=== PATIENT | male | born 1975 | race Caucasian/White ===

== ENCOUNTER 2019-07-01 00:52 | Observation (INO) ==
[2019-07-01] MEDS ORDERED: Albuterol 2.5 MG/3 ML NEBULIZER ONE (01:03)
[2019-07-01] MEDS ORDERED: 0.9 % Sodium Chloride 1,000 ML IVC ONE (01:04)
[2019-07-01] MEDS ORDERED: Famotidine 20 MG/2 ML VIAL IVP ONE (01:04)
[2019-07-01] MEDS ORDERED: Famotidine 20 MG/2 ML VIAL ONE (01:05)
[2019-07-01] MEDS ORDERED: Dexamethasone 10 MG/ML VIAL ONE (01:05)
[2019-07-01] MEDS ORDERED: Dexamethasone 4 MG/ML VIAL IVP ONE ×2 (01:05→05:09)
[2019-07-01] MEDS ORDERED: 0.9 % Sodium Chloride 1,000 ML ONE (01:08)
[2019-07-01] MEDS ORDERED: EPINEPHrine 1 MG/ML VIAL ONE (01:16)
[2019-07-01] MEDS ORDERED: EPINEPHrine 1 MG/ML VIAL IM ONE (01:20)
--- NOTE | 2019-07-01 01:24 | Emergency Department Note ---
Disposition Clinical Impression: Urticaria Angioedema Qualifiers: Encounter type: initial encounter Qualified Code(s): T78.3XXA - Angioneurotic edema, initial encounter Allergic reaction Qualifiers: Encounter type: initial encounter Qualified Code(s): T78.40XA - Allergy, unspecified, initial encounter Anaphylaxis Qualifiers: Encounter type: initial encounter Qualified Code(s): T78.2XXA - Anaphylactic shock, unspecified, initial encounter Disposition: Admitted As Inpatient Condition: Fair Time of Disposition: 05:45 Allergic Reaction HPI - General Chief complaint: ED Allergic Reaction Stated complaint: allergic reaction Time Seen by Provider: 07/01/19 01:04 Source: patient Limitations: no limitations Nursing Notes Reviewed: Yes Vital Signs Reviewed: Yes - History of Present Illness HPI Narrative: 44-year-old male presents for evaluation of allergic reaction. He states that he noticed some hives on his arms earlier in the day. He recently restarted Suboxone. He did receive Benadryl earlier for itching and urticaria. He states he went to the bathroom and got a shower and came back he was short of breath as swollen. Unsure of any allergen. No fever no chills. He did use methamphetamine about 1 week ago. He is an IV drug user. He had just eaten ravioli with cheese shortly prior to this occurring. Pt Subjective Complaint: allergic reaction, facial swelling Onset (ago): Just [employer] Exposure: unknown Symptoms: Reports: difficulty breathing Severity: moderate, severe Treatment prior to arrival: benadryl Previous Allergic Reaction History: other (He has had some reactions in the past to either food but really unknown substances. But girlfriend states that seems date being cheese when this occurs.) - Related Data Home Medications Medication Instructions Recorded Confirmed Albuterol Sulfate [Proventil 1 - 2 puff IH PRN 07/01/19 Inhaler] Buprenorphine HCl/Naloxone HCl 1 each SL BID 07/01/19 07/01/19 [Suboxone 8 mg-2 mg Sl Film] Dulera 100 Mcg/5 Mcg Inhaler 07/01/19 Allergies Allergy/AdvReac Type Severity Reaction Status Date / Time No Known Allergies Allergy Verified 06/21/19 00:31 All systems ED: reviewed and negative except as stated. Constitutional: Denies: fever, chills, weakness, weight change Eyes: Denies: eye pain, eye discharge, vision change ENT ED: Denies: ear pain, throat pain, dental pain, hearing loss, epistaxis, congestion, dysphagia Cardiovascular: Reports: dyspnea on exertion. Denies: chest pain, palpitations, edema, syncope Respiratory: Reports: dyspnea, wheezes. Denies: cough, hemoptysis, stridor Gastrointestinal: Denies: abdominal pain, nausea, vomiting, diarrhea, constipation, hematemesis, melena, hematochezia Genitourinary: Denies: urgency, dysuria, frequency, hematuria Musculoskeletal: Denies: back pain, neck pain, arthralgia, myalgia Integumentary: Reports: pruritus, other (Hives). Denies: rash, abrasion, lesions Neurological: Denies: headache, weakness, numbness, paresthesias, confusion, abnormal gait, vertigo Psychiatric: Denies: anxiety, depression, suicidal thoughts, homicidal thoughts, auditory hallucinations, visual hallucinations Endocrine: Denies: fatigue Past Medical History - Past Medical History Attestation: Yes The following information was validated with the patient. Source: patient, old records reviewed, nursing notes reviewed Medical history: Reports: asthma, hepatitis, IV drug use Surgical history: Reports: non-contributory Psychiatric history: Reports: no psych history - Social History Smoking Status: Current every day smoker Smokeless Tobacco Status: No Alcohol use: Reports: none Drug use: Reports: none Physical Exam - General Limitations: no limitations General appearance: alert, in no apparent distress - Head Head exam: atraumatic, normocephalic, other (Upper and lower lip swelling eyelid edema) - Eye Eye exam: Present: normal appearance, PERRL, EOMI, periorbital swelling, other (Eyelid edema) - ENT ENT exam: normal exam, normal oropharynx, mucous membranes moist - Neck Neck exam: Present: normal inspection, full ROM, trachea midline - Chest Chest inspection: Present: normal inspection, symmetric chest wall rise. Absent: tenderness - Respiratory Respiratory exam: Present: respiratory distress, wheezes, stridor (I noticed a slight amount of stridor initially however after the aerosol treatment of albuterol this was not noted.). Absent: normal lung sounds bilaterally - Cardiovascular Cardiovascular exam: Present: tachycardia, normal heart sounds - Abdominal Exam Abdominal exam: Present: soft, Non-Tender, normal bowel sounds. Absent: tenderness, distention, guarding, rebound, rigidity - Extremities Exam Extremities exam: Present: normal inspection, full ROM, normal capillary refill. Absent: tenderness, pedal edema - Back Exam Back exam: Present: normal inspection, full ROM. Absent: tenderness, CVA te nderness (R), CVA tenderness (L) - Neurological Exam Neurological exam: Present: alert, oriented X3, CN II-XII intact - Psychiatric Psychiatric exam: Present: normal affect, normal mood - Skin Skin exam: Present: warm, dry, intact, normal color, rash (Urticaria bilateral upper extremities and lower abdomen) Course Course Narrative: Patient placed in exam room. Nurse's notes reviewed. He was seen on arrival. After IV was established Decadron, Pepcid, Benadryl were given IV. Patient was monitored for his airway. DuoNeb was given and the wheezing did clear. Did not note any stridor at this point. Duration was given his airway for possible intubation. However, epinephrine 0.3 mg IM was given prior Approximate, after 5 minutes the urticaria and eyelid swelling and some of the lip swelling improved. Patient will continue to be monitored. Patient was tachycardic, no fever, short of breath, wheezing, therefore blood cultures were obtained. He did meet SIRS criteria. however, I feel this is more secondary to allergic reaction versus infectious process. Patient went to CT scan have a CTA of his chest as well as a CT soft tissue neck no significant added value was noted except endobronchial debris in the right upper lobe. Rocephin 2 g IV was given. Patient be monitored. His lower lip on the right side edema and swelling improved. Still the left lower lip left upper lip also has improved significantly although is still swollen. - Reevaluation(s) Reevaluation #1: Patient is resting awaiting for results of eyes need to stay in the hospital he is agreeable. Time: 04:00 Reevaluation #2: Resting comfortably edema seemed to be improving. Time: 05:00 Reevaluation #3: She is resting comfortable. Airway is protected. Saturations 100% on room air. Time: 06:00 - Consultations Consultation #1: Dr. Philip was contacted and he agrees to observation. Patient we continue to be monitored. Time: 05:45 Vital Signs Temperature 97.9 F 07/01/19 00:57 Pulse Rate 126 07/01/19 00:57 Respiratory Rate 24 07/01/19 00:57 Blood Pressure 134/122 07/01/19 00:57 O2 Sat by Pulse Oximetry 91 07/01/19 00:57 Temperature 97.9 F 07/01/19 00:57 Pulse Rate 84 07/01/19 06:05 Respiratory Rate 20 07/01/19 06:05 Blood Pressure 103/59 07/01/19 06:05 O2 Sat by Pulse Oximetry 100 07/01/19 06:05 Oxygen Delivery Oxygen Delivery Room Air Allergic Reaction - Differential Diagnosis Differential Diagnosis: Likely: anaphylaxis, angioedema - Medical Records Medical records reviewed: Yes I reviewed the patient's medical records. - Lab Data Lab results reviewed: Yes I reviewed the patient's lab results. Result diagrams: 07/01/19 01:39 07/01/19 01:39 Lab Results 07/01/19 07/01/19 07/01/19 Range/Units 01:39 01:39 01:39 WBC 17.8 H (4.3-11.1) K/mcL RBC 5.71 H (4.19-5.50) M/mcL Hgb 17.1 H (12.9-16.9) g/dL Hct 51.6 H (37.5-50.1) % MCV 90.4 (83.0-100.0) fL MCH 29.9 (28.0-33.3) pg MCHC 33.1 (31.6-35.5) g/dL RDW 12.8 (11.5-14.5) % Plt Count 341 (140-400) K/mcL MPV 10.9 (9.4-12.4) fL Immature Gran % 2.3 (0-4) % Seg Neutrophils % 84.7 % Lymphocytes % 11.9 % Monocytes % 0.6 % Eosinophils % 0.0 % Basophils % 0.5 % Neutrophils # 15.1 H (1.6-8.9) K/mcL Lymphocytes # 2.1 (0.6-4.6) K/mcL Monocytes # 0.1 (0.0-1.3) K/mcL Eosinophils # 0.0 (0.0-0.6) K/mcL Basophils # 0.1 (0.0-0.2) K/mcL Platelet Estimate Normal (Normal) Sodium 138 (136-145) mEq/L Potassium 3.6 (3.5-5.1) mEq/L Chloride 104 (98-107) mEq/L Carbon Dioxide 26 (23-29) mEq/L BUN 14 (6-20) mg/dL Creatinine 0.85 (0.70-1.30) mg/dL Est GFR ( Amer) > 60 (> 60) Est GFR (Non-Af Amer) > 60 (> 60) BUN/Creatinine Ratio 16 (6-26) Glucose 180 H (70-105) mg/dL Calculated Osmolality 291 (280-300) Lactic Acid 1.2 (0.5-2.2) mmol/L Calcium 8.6 (8.6-10.3) mg/dL Total Bilirubin 0.6 (0.3-1.0) mg/dL AST 36 (13-39) Units/L ALT 71 H (7-52) Units/L Alkaline Phosphatase 53 (34-104) Units/L Troponin I < 0.03 (< 0.04) ng/mL Serum Total Protein 6.1 L (6.4-8.9) g/dL Albumin 3.9 (3.5-5.7) g/dL Globulin 2.2 L (2.4-3.5) g/dL Albumin/Globulin Ratio 1.8 (1.1-2.2) - Radiology Data Radiology results reviewed: Yes I reviewed the patient's radiology results. Chest X-Ray 07/01/19 03:01 IMPRESSION: No acute findings. D/ / Toro Carter / Toro Carter Interpreting Provider: Toro Carter Chest CTA 07/01/19 03:36 IMPRESSION: Negative for acute pulmonary embolism to the segmental level. No evidence of septic embolic disease or pulmonary abscess. Mild diffuse airway inflammation may be seen with asthma, bronchitis or smoking. No consolidative airspace disease. Endobronchial debris within the middle lobe bronchus, new since 05/26/2019. No downstream atelectasis at this time. Mild paraseptal emphysema. D/ / Toro Carter / Toro Carter Interpreting Provider: Toro Carter Soft Tissue Neck CT 07/01/19 03:36 IMPRESSION: No acute abnormality of the soft tissue structures of the neck. D/ / Toro Carter / Toro Carter Interpreting Provider: Toro Carter - EKG Data EKG attestation: Yes I reviewed and interpreted this EKG. EKG results narrative: EKG shows a normal sinus rhythm at 109 bpm, normal axis, normal intervals, no acute ST elevations or depressions. As reviewed and interpreted by me Critical Care Time Critical Care Time: Yes Total Critical Care Time: 60 Attestation: The high probability of a clinically significant, sudden or life threatening deterioration of the patient's condition required my full and direct attention, intervention and personal management.
[2019-07-01] MEDS ORDERED: Albuterol 2.5 MG/3 ML NEBULIZER IH ONE (01:30)
[2019-07-01] MEDS ORDERED: Isovue-370 500 ML BOTTLE IVP ONE ×2 (01:51→02:00)
[2019-07-01 01:56] LABS: Basophils # 0.1 K/mcL (0.0-0.2); Basophils % 0.5 %; Hematocrit 51.6 % (37.5-50.1); Hemoglobin 17.1 g/dL (12.9-16.9); Immature Granulocytes % 2.3 % (0-4); Lymphocytes # 2.1 K/mcL (0.6-4.6); Lymphocytes % 11.9 %; Mean Corpuscular HGB Conc 33.1 g/dL (31.6-35.5); Mean Corpuscular Hemoglobin 29.9 pg (28.0-33.3); Mean Corpuscular Volume 90.4 fL (83.0-100.0); Mean Platelet Volume 10.9 fL (9.4-12.4); Monocytes # 0.1 K/mcL (0.0-1.3); Monocytes % 0.6 %; Neutrophils # 15.1 K/mcL (1.6-8.9); Platelet Count 341 K/mcL (140-400); Red Blood Count 5.71 M/mcL (4.19-5.50); Red Cell Distribution Width 12.8 % (11.5-14.5); Segmented Neutrophils % 84.7 %; White Blood Count 17.8 K/mcL (4.3-11.1)
[2019-07-01 02:16] LABS: Alanine Aminotransferase 71 Units/L (7-52); Albumin 3.9 g/dL (3.5-5.7); Albumin/Globulin Ratio 1.8 (1.1-2.2); Alkaline Phosphatase 53 Units/L (34-104); Aspartate Amino Transferase 36 Units/L (13-39); BUN/Creatinine Ratio 16 (6-26); Bilirubin,Total 0.6 mg/dL (0.3-1.0); Blood Urea Nitrogen 14 mg/dL (6-20); Calcium 8.6 mg/dL (8.6-10.3); Carbon Dioxide 26 mEq/L (23-29); Chloride 104 mEq/L (98-107); Globulin 2.2 g/dL (2.4-3.5); Glucose 180 mg/dL (70-105); Osmolality,Calculated 291 (280-300); Potassium 3.6 mEq/L (3.5-5.1); Sodium 138 mEq/L (136-145); Total Protein 6.1 g/dL (6.4-8.9); eGFR For African Americans > 60 (> 60); eGFR For Non-African Americans > 60 (> 60)
[2019-07-01 02:23] LABS: Troponin I < 0.03 ng/mL (< 0.04)
[2019-07-01 02:32] LABS: Platelet Estimate Normal (Normal)
[2019-07-01] MEDS ORDERED: cefTRIAXone 2,000 MG in 0.9 % Sodium Chloride Mini Bag 100 ML IVPB ONE (05:09)
[2019-07-01 06:12] LABS: Bilirubin,Urine Small (Negative); Blood,Urine Negative (Negative); Clarity,Urine Turbid (Clear); Color,Urine Dark Yellow (Yellow); Glucose,Urine (UA) 250 mg/dL (Normal); Ketones,Urine 15 mg/dL (Negative); Leukocyte Esterase,Urine Negative (Negative); Nitrite,Urine Negative (Negative); Protein,Urine Trace mg/dL (Neg-Trace); Urobilinogen,Urine Normal (Normal)
[2019-07-01 06:14] LABS: Bacteria,Urine None Seen per hpf (None-Few); Hyaline Casts,Urine None Seen per lpf (None-Few); Squamous Epithelial Cell,Urine Many per lpf (None-Few); WBC,Urine 0-3 per hpf (0-3)
[2019-07-01 06:22] LABS: Amphetamine Screen,Urine Negative ng/mL (Cutoff=1000); Barbiturate Screen,Urine Negative ng/mL (Cutoff=200)
[2019-07-01 06:23] LABS: Benzodiazepines Screen,Urine Negative ng/mL (Cutoff=300); Cannabinoid Screen,Urine Positive ng/mL (Cutoff = 50); Cocaine Screen,Urine Negative ng/mL (Cutoff= 300); Opiate Screen,Urine Negative ng/mL (Cutoff=300); Phencyclidine Screen,Urine Negative ng/mL (Cutoff=25)
[2019-07-01] MEDS ORDERED: Naloxone 0.4 MG/ML INJ IVP PRN (06:29)
[2019-07-01] MEDS ORDERED: EPINEPHrine 1 MG/ML VIAL IM PRN (06:37)
--- NOTE | 2019-07-01 06:40 | Internal Med History&Physical ---
Date of Encounter: 07/01/19 Time of Encounter: 06:15 Internal Medicine - H&P: HPI Chief complaint: Angioedema Admitted From: Emergency Dept Plans for Post Hospital Care: Home History of present illness: Mr. Hughes is a 44 year old male Patient presented to the emergency department with difficulty breathing. He had presented earlier to an urgent care for hives that he developed after taking a Suboxone tablet. They gave him some steroids, and discharged him home. At that time he only had hives. He took a shower but upon exiting the shower he noticed that his face was starting to swell. He returned to the urgent care who then referred him to the emergency department for further management. His symptoms started approximately around 3 PM. He has never had swelling like this before but states that he may have had reactions to medicines in the past. He does not remember what the medicines were however. In the reaction that he had was only hives. Emergency department vital signs temperature 97.9, pulse 126, respiratory rate 24, blood pressure 134/122, O2 saturation 91% on room air. CBC notable for white count of 17.8 BMP notable for a glucose of 180. Initial troponin undetectable Liver function tests unremarkable Urinalysis: Elevated specific gravity, 250 urine glucose, 15 ketones, small bilirubin many squamous epithelial cells. Urine tox screen positive for marijuana Chest x-ray showed no acute findings CT angiogram: IMPRESSION: Negative for acute pulmonary embolism to the segmental level. No evidence of septic embolic disease or pulmonary abscess. Mild diffuse airway inflammation may be seen with asthma, bronchitis or smoking. No consolidative airspace disease. Endobronchial debris within the middle lobe bronchus, new since 05/26/2019. No downstream atelectasis at this time. Mild paraseptal emphysema. CT soft tissue neck showed no acute abnormality In the ER the patient was given Epinephrine, famotidine, benadryl and dexamethasone. He was also given an albuterol nebulizer. The ER physician worried about need for intubation but the patient's condition rapidly improved with medical management. He was given an additional dose of dexamethasone and continue to be stable. He was admitted to the hospital for close observation of his symptoms. Upon my evaluation the patient is resting comfortably in the ER bed in no acute distress. He denies chest pain, abdominal pain, nausea, vomiting, diarrhea and constipation. He has no previous known allergies to medications, foods or a nimals. He was recently started on suboxone as he has IV drug use history. Last time he used methamphetamine was about 1 week ago. He states that he also has a history of asthma, but denies other medical problems. He is a full code. Past Med Surg Social Fam HX - Past Medical History Medical history: asthma, hepatitis, IV drug use Additional medical history: Hep C Psychiatric history: no psych history - Past Surgical History Surgical History: non-contributory Additional surgical history: Dental Surgery - Social History Smoking Status: Current every day smoker Smokeless Tobacco Status: No Alcohol use: none Drug use: none Internal Medicine - H&P: Meds Albuterol Sulfate [Proventil Inhaler] 1 - 2 puff IH PRN 07/01/19 [History] Buprenorphine HCl/Naloxone HCl [Suboxone 8 mg-2 mg Sl Film] 1 each SL BID 07/01/19 [History] Dulera 100 Mcg/5 Mcg Inhaler 07/01/19 [History] Allergy/AdvReac Type Severity Reaction Status Date / Time No Known Allergies Allergy Verified 06/21/19 00:31 All Systems PM: A 10-system review of systems was performed and is negative for pertinent findings except as documented above in the HPI. - Constitutional Vitals: Temp Pulse Resp BP Pulse Ox 97.9 F 84 20 103/59 100 07/01/19 00:57 07/01/19 06:05 07/01/19 06:05 07/01/19 06:05 07/01/19 06:05 General appearance: Present: cooperative, A&O X 3, pleasant, no acute distress, answers questions appropriately Exam: - - Head Head exam: Present: normal inspection - Eye Eye exam: Present: EOMI, normal appearance, periorbital swelling. Absent: periorbital tenderness Additional comments: Bilateral eyelid swelling - ENT ENT exam: Present: mucous membranes moist Additional comments: upper and lower lip swelling, no tongue swelling. - Expanded ENT Exam Mouth exam: Absent: drooling, muffled voice - Neck Neck exam general surgery: Present: full ROM, supple. Absent: tenderness, nuchal rigidity - Respiratory Respiratory exam: Present: wheezes. Absent: accessory muscle use, CTAB, rales, respiratory distress, rhonchi, stridor - Cardiovascular Cardiovascular exam: Present: RRR. Absent: diastolic murmur, systolic murmur - GI/Abdominal GI/Abdominal exam: Present: normal bowel sounds, soft. Absent: tenderness - Extremities Exam Extremities exam: Present: warm, radial pulses palpable and symmetrical. Absent: calf tenderness, pedal edema, tenderness - Neurological Exam Neurological exam: Present: no focal deficits, strengths equal and symetr throughout. Absent: motor sensory deficit, facial droop, speech deficit - Skin Skin exam: Present: dry, normal color, warm. Absent: rash, urticaria Internal Med - H&P Results - Labs CBC & Chem 7: 07/01/19 01:39 07/01/19 01:39 Labs: Short CBC 07/01/19 Range/Units 01:39 WBC 17.8 H (4.3-11.1) K/mcL Hgb 17.1 H (12.9-16.9) g/dL Hct 51.6 H (37.5-50.1) % Plt Count 341 (140-400) K/mcL Neutrophils # 15.1 H (1.6-8.9) K/mcL BMP 07/01/19 01:39 Sodium 138 Potassium 3.6 Chloride 104 Carbon Dioxide 26 BUN 14 Creatinine 0.85 Glucose 180 H Calcium 8.6 Cardiac Enzymes 07/01/19 Range/Units 01:39 Troponin I < 0.03 (< 0.04) ng/mL Liver Function 07/01/19 Range/Units 01:39 Total Bilirubin 0.6 (0.3-1.0) mg/dL AST 36 (13-39) Units/L ALT 71 H (7-52) Units/L Alkaline Phosphatase 53 (34-104) Units/L Albumin 3.9 (3.5-5.7) g/dL Urine 07/01/19 Range/Units 06:00 Urine Color Dark Yellow (Yellow) Urine Clarity Turbid A (Clear) Urine pH 6.0 (5.0-8.0) pH Units Ur Specific [place] 1.030 H (1.010-1.025) Urine Protein Trace (Neg-Trace) mg/dL Urine Glucose (UA) 250 H (Normal) mg/dL - Impressions ITS Impressions Chest X-Ray 07/01/19 03:01 IMPRESSION: No acute findings. D/ / Toro Carter / Toro Carter Interpreting Provider: Toro Carter Chest CTA 07/01/19 03:36 IMPRESSION: Negative for acute pulmonary embolism to the segmental level. No evidence of septic embolic disease or pulmonary abscess. Mild diffuse airway inflammation may be seen with asthma, bronchitis or smoking. No consolidative airspace disease. Endobronchial debris within the middle lobe bronchus, new since 05/26/2019. No downstream atelectasis at this time. Mild paraseptal emphysema. D/ / Toro Carter / Toro Carter Interpreting Provider: Toro Carter Soft Tissue Neck CT 07/01/19 03:36 IMPRESSION: No acute abnormality of the soft tissue structures of the neck. D/ / Toro Carter / oTro Carter Interpreting Provider: Toro Carter - Assessment and Plan (1) Angioedema Current Visit: Yes Status: Acute Assessment and plan: Possibly secondary to Suboxone one, patient's face still swollen in the eyelids and lips. Has improved since initial presentation according to ER physician and nurse. Patient able to open eyes wide and no difficulty breathing. Vital signs are stable. Patient's symptoms improved after dexamethasone, albuterol, epinephrine, famotidine and benadryl. Continuous pulse ox NPO Oxygen supplementation as needed Cardiac monitoring Continue famotidine, albuterol. PRN epinephrine, benadryl Hold further doses of suboxone Qualifiers: Encounter type: initial encounter Qualified Code(s): T78.3XXA - Angioneurotic edema, initial encounter (2) Anaphylaxis Current Visit: Yes Status: Acute Assessment and plan: Possibly due to suboxone, no other new medications or foods exposed to. Management as above. Qualifiers: Encounter type: initial encounter Qualified Code(s): T78.2XXA - Anaphylactic shock, unspecified, initial encounter (3) Leukocytosis Current Visit: Yes Status: Acute Assessment and plan: Possibly secondary to steroids, patient has no obvious infections on exam. Given ceftriaxone in the ER. Blood cultures drawn. Continue to monitor for signs of infection Hold ceftriaxone for now Follow up blood cultures Qualifiers: Leukocytosis type: bandemia Qualified Code(s): D72.825 - Bandemia (4) Hyperglycemia Current Visit: Yes Status: Acute Assessment and plan: Patient denies history of diabetes. Possible related to steroids given to patient. Continue to monitor consider A1c if blood glucose remains elevated. (5) DVT prophylaxis Current Visit: Yes Status: Acute Assessment and plan: SCDs - Time Spent With Patient Total time spent is greater than 50% in coordination of care (as documented) at patient's floor/unit and/or counseling patient:
[2019-07-01] MEDS: Famotidine 20 MG/2 ML VIAL IVP SCH ×2 (07:35→18:28)
[2019-07-01] MEDS: Albuterol 2.5 MG/3 ML NEBULIZER IH SCH ×5 (07:47→22:58)
[2019-07-01 10:23] LABS: Hematocrit 46.9 % (37.5-50.1); Hemoglobin 15.7 g/dL (12.9-16.9); Mean Corpuscular HGB Conc 33.5 g/dL (31.6-35.5); Mean Corpuscular Hemoglobin 30.7 pg (28.0-33.3); Mean Corpuscular Volume 91.8 fL (83.0-100.0); Mean Platelet Volume 10.7 fL (9.4-12.4); Platelet Count 256 K/mcL (140-400); Red Blood Count 5.11 M/mcL (4.19-5.50); Red Cell Distribution Width 12.8 % (11.5-14.5); White Blood Count 14.3 K/mcL (4.3-11.1)
[2019-07-01 10:50] LABS: BUN/Creatinine Ratio 15 (6-26); Blood Urea Nitrogen 12 mg/dL (6-20); Calcium 9.1 mg/dL (8.6-10.3); Carbon Dioxide 29 mEq/L (23-29); Chloride 105 mEq/L (98-107); Glucose 160 mg/dL (70-105); Osmolality,Calculated 291 (280-300); Potassium 4.7 mEq/L (3.5-5.1); Sodium 139 mEq/L (136-145); eGFR For African Americans > 60 (> 60); eGFR For Non-African Americans > 60 (> 60)
[2019-07-01] MEDS ORDERED: Nicotine 2 MG GUM BC PRN (10:56)
[2019-07-01] MEDS ORDERED: Nicotine 21 MG PATCH.TD24 TD SCH (11:00)
--- NOTE | 2019-07-01 11:36 | Event Note ---
Date of Encounter: 07/01/19 Time of Encounter: 11:22 S: Pt says his swelling has gone down by half, no SOB or difficulty eating/swallowi ng/talking, able to open his eyes. No fevers or rash or diarrhea. No dental pain. Says he started suboxone about 7-8 days ago and symptoms started about 2 days later. O: Vitals reviewed, wnl. Face swollen, L>R periorbital swelling and upper>lower lip swelling No stridor No rash No abd pain No leg swelling A: Likely allergic reaction from suboxone v less likely angioedema, improving already and no stridor P: Continue allergic meds steroids, pepcid, benadryl Discussed stopping suboxone, pt will call his provider on Wednesday Likely d/c tomorrow
[2019-07-01] MEDS ORDERED: MethylPREDNISolone 40 MG/ML VIAL IVP ONE (17:33)
[2019-07-01] MEDS ORDERED: Nicotine 21 MG PATCH.TD24 TD ONE (18:54)
[2019-07-01] MEDS ORDERED: Nystatin POWDER 30 GM BOTTLE TP SCH (21:00)
[2019-07-02 03:30] VITALS: BP 122/67
[2019-07-02] MEDS: Albuterol 2.5 MG/3 ML NEBULIZER IH SCH (04:10)
[2019-07-02] MEDS: Famotidine 20 MG/2 ML VIAL IVP SCH (06:09)
--- NOTE | 2019-07-02 07:51 | Discharge Summary ---
- NOTES TO OUTPATIENT PROVIDER Notes to Outpatient Provider: Discontinue suboxone due to allergic reaction / angioedema of face/throat Date of Encounter: 07/02/19 Time of Encounter: 07:46 (pt left before being seen) Hospital course: Dear Doctors, I recently had the opportunity to care for this patient during their recent hospital stay at [facility]. Kendrick Hughes is a 44 M w hx IVDU, hepatitis, who p/w facial swelling. Symptoms occurred about 2 days after starting suboxone, and persistently worsened over the course of 1 week. In the ED, patient found to have facial and pharyngeal swelling with stridor noted, which improved with epinephrine and dexamethasone. Patient was monitored overnight with continued partial improvement of his symptoms. 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 Please contact me with any questions or concerns regarding their hospital stay. Sincerely, Dylan Alberto MD - Discharge Medications Prescriptions: New predniSONE [PredniSONE] 40 mg PO DAILY #6 tablet Continued Albuterol Sulfate [Proventil Inhaler] 1 - 2 puff IH PRN PRN Reason: sob Dulera 100 Mcg/5 Mcg Inhaler Discontinued Buprenorphine HCl/Naloxone HCl [Suboxone 8 mg-2 mg Sl Film] 1 each SL BID Home Medications: Albuterol Sulfate [Proventil Inhaler] 1 - 2 puff IH PRN 07/01/19 [History] Dulera 100 Mcg/5 Mcg Inhaler 07/01/19 [History] predniSONE [PredniSONE] 40 mg PO DAILY #6 tablet 07/02/19 [Rx] Allergies/Adverse Reactions: Allergy/AdvReac Type Severity Reaction Status Date / Time No Known Allergies Allergy Verified 06/21/19 00:31 Date of admission: 07/01/19 05:56 Primary care physician: PCP NONE - Constitutional Vitals: Temp Pulse Resp BP Pulse Ox 98.9 F 72 15 122/67 94 07/02/19 03:26 07/02/19 03:26 07/02/19 03:26 07/02/19 03:26 07/02/19 03:26 Exam: not seen on day of discharge - Patient Status Disposition: Home, Self-Care Condition: Fair Functional capacity at discharge: independent ambulation Overall status at discharge: patient is progressing back to baseline - Discharge Instructions Follow Up With: NONE,PCP [Primary Care Provider] - - Diet and Activity Activity: resume usual activities as tolerated Diet: advance to your usual diet
[2019-07-02] MEDS ORDERED: predniSONE 20 MG TABLET PO SCH (09:00)
[2019-07-02] MEDS ORDERED: Nicotine 21 MG PATCH.TD24 TD ONE (18:52)
== END 2019-07-02 06:33 | disposition home or self-care (01) ==
LOC: EMEROOARM 00:52 → 2NNU 00:52 → SUATTDRO 05:56 → 2NNU 06:48 → 3ANU 11:11
PROVIDERS: ADMIT Family Medicine; ATTEND Internal Medicine